=== PATIENT | male | born 1960 | race Caucasian/White ===

== ENCOUNTER 2018-09-12 08:58 | Emergency (ER) | payer BC ==
--- NOTE | 2018-09-12 10:52 | RAD ---
Indication: Puncture wound lateral aspect RIGHT heel with cactus spine. Comparison: No relevant prior exams available on the [facility] PACS for comparison.. Technique: Ultrasound lateral and posterior aspect RIGHT heel corresponding with the site of puncture wound.. REPORT AND IMPRESSION: #. Marrow edematous tract extends approximate 5 mm deep to the skin surface from the site of the puncture wound. The puncture wound tract is lateral to the distal insertional segment of the Achilles tendon without involvement of the tendon. No foreign body evident.
[2018-09-12 12:43] VITALS: BP 0/0
--- NOTE | 2018-09-12 19:03 | ED ---
Skin Complaint - HPI Summary HPI Summary: Patient is a 58-year-old male who presents emergency department for evaluation of possible foreign body to his right posterior ankle. Patient states a cactus plant at his house last night and got knocked over and a needle went into his posterior right ankle. Patient states he pulled a small piece of the needle out but is concerned there may be some left and wound. Patient states he did try to explore area with tweezers but was not able to find any further foreign body. Patient states today he noticed increased pain with putting weight on his right heel and ankle and was concerned for possible retained foreign body. Symptoms are mild in severity. No associate symptoms of fever, chills, nausea, vomiting. No significant past medical history. - History of Current Complaint Chief Complaint: EDExtremityLower Time Seen by Provider: 09/12/18 09:09 Stated Complaint: RT ANKLE INJURY Hx Obtained From: Patient Pain Intensity: 8 - Allergy/Home Medications Allergies/Adverse Reactions: Allergies Allergy/AdvReac Type Severity Reaction Status Date / Time peanut Allergy Swelling Verified 09/12/18 12:56 Of Face,Lips,& Throat PMH/Surg Hx/FS Hx/Imm Hx Previously Healthy: Yes Infectious Disease History: No Infectious Disease History: Denies: Traveled Outside the [place] in Last 30 Days - Family History Known Family History: Positive: Other - Noncontributory - Social History Occupation: Employed Full-time Lives: With Family Alcohol Use: Occasionally Substance Use Type: Reports: None Smoking Status (MU): Heavy Every Day Tobacco Smoker Review of Systems Constitutional: Negative Negative: Fever, Chills Positive: Other - Puncture wound to right posterior ankle All Other Systems Reviewed And Are Negative: Yes Physical Exam Triage Information Reviewed: Yes Vital Signs On Initial Exam: Initial Vitals Temp Pulse Resp BP Pulse Ox 97.9 F 75 16 179/105 97 09/12/18 09:02 09/12/18 09:02 09/12/18 09:02 09/12/18 09:02 09/12/18 09:02 Vital Signs Reviewed: Yes Appearance: Positive: Well-Appearing - Pt. sitting on bed in NAD. Pleasant. Skin: Positive: Warm, Dry, Other - Noted to the posterior right ankle there is a small puncture wound with a small area of surrounding erythema. No induration or fluctuance. A small amount of clear fluid was expressed. I do not appreciate visualizing or palpating a foreign body. Head/Face: Positive: Normal Head/Face Inspection Eyes: Positive: Normal, EOMI Neck: Positive: Supple Neurological: Positive: Normal, Reflexes Intact Psychiatric: Positive: Affect/Mood Appropriate Diagnostics - Vital Signs Vital Signs Temp Pulse Resp BP Pulse Ox 09/12/18 12:41 0 F 0 0 0/0 0 09/12/18 09:02 97.9 F 75 16 179/105 97 - Laboratory Lab Statement: Any lab studies that have been ordered have been reviewed, and results considered in the medical decision making process. Course/Dx - Course Course Of Treatment: Patient presenting with possible retained cactus needle to right ankle. Do not appreciate foreign body on exam. We'll obtain ultrasound for further evaluation. U/S read per radiology: REPORT AND IMPRESSION: #. Marrow edematous tract extends approximate 5 mm deep to the skin surface from the. site of the puncture wound. The puncture wound tract is lateral to the distal insertional. segment of the Achilles tendon without involvement of the tendon. No foreign body evident. I spoke with radiologist, Dr. Galarza, who personally performed ultrasound and he states that ultrasound is an appropriate test to evaluate for foreign body and he does not recommend any further imaging at this time. Patient understands and agrees with plan. Will give a prescription for Bactrim for potential early infection. Advised to keep wound clean and dry. He'll follow-up with his family doctor if pain persists. We'll return to the ER symptoms change or worsen. Patient understands and agrees with plan. - Differential Diagnoses - Skin Complaint Differential Diagnoses: Abscess, Cellulitis, Foreign Body - Diagnoses Provider Diagnoses: Puncture wound Discharge - Sign-Out/Discharge Documenting (check all that apply): Patient Departure - Discharge Plan Condition: Good Disposition: HOME Prescriptions: Sulfamethox/Trimethoprim DS* [Bactrim DS 800/160 TAB*] 1 tab PO DAILY #20 tab Patient Education Materials: Puncture Wound (ED) Referrals: Bharath Gallagher MD [Primary Care Provider] - Additional Instructions: Follow up with your PCP for wound check in 2-3 days Keep wound clean and dry Antibiotic as directed Return to ER for increased pain, fever, redness, swelling, or if concerned - Billing Disposition and Condition Condition: GOOD Disposition: Home
== END 2018-09-12 12:41 | disposition home or self-care (01) ==
LOC: ED 08:58 → MERGE 08:58 → ED 12:41
DX: S81.831A Puncture wound without foreign body, right lower leg, initial encounter (principal); W60.XXXA Contact with nonvenomous plant thorns and spines and sharp leaves, initial encounter; Y92.009 Unspecified place in unspecified non-institutional (private) residence as the place of occurrence of the external cause; Z91.010 Allergy to peanuts; F17.200 Nicotine dependence, unspecified, uncomplicated
CPT/HCPCS: 99281